=== PATIENT | female | born 1995 | race Hispanic/Latino ===

== ENCOUNTER 2022-01-07 18:44 | Emergency (ER) | payer BC, OTHER ==
[~2022-01-07] VITALS: Ht 162.6 cm; Wt 81.6 kg
[2022-01-07] MEDS ORDERED: METHOCARBAMOL750 MG PO (18:58)
[2022-01-07] MEDS ORDERED: IBUPROFEN600 MG PO (18:58)
== END 2022-01-07 19:35 | disposition home or self-care (01) ==
LOC: ER 18:52
DX: S39.012A Strain of muscle, fascia and tendon of lower back, initial encounter (principal); X50.9XXA Other and unspecified overexertion or strenuous movements or postures, initial encounter; Y92.89 Other specified places as the place of occurrence of the external cause; E03.9 Hypothyroidism, unspecified
CPT/HCPCS: 99282